=== PATIENT | male | born 1990 | race Caucasian/White ===

== ENCOUNTER → 2018-11-23 | Outpatient (CLI) | payer OTHER ==
[~2018-11-23] MED LIST: NAPROSYN500 MG PO
== END ==
LOC: M.MRI 07:03
DX: M25.562 Pain in left knee (principal); G89.29 Other chronic pain

== ENCOUNTER 2019-01-26 21:10 | Emergency (ER) | payer OTHER ==
[~2019-01-26] VITALS: Ht 180.3 cm; Wt 81.7 kg
[2019-01-26 21:41] LABS: ABSOLUTE BASOPHILS 0.1 thou/uL (0.0-0.2); ABSOLUTE EOSINOPHILS 0.1 thou/uL (0.0-0.7); ABSOLUTE LYMPHOCYTES 1.4 thou/uL (0.8-5.3); ABSOLUTE MONOCYTES 0.7 thou/uL (0.0-1.2); ABSOLUTE NEUTROPHILS 4.1 thou/uL (1.6-8.1); BASOPHILS 0.9 %; EOSINOPHILS 1.4 %; HEMATOCRIT 48.7 % (42.0-52.0); HEMOGLOBIN 16.7 gm/dL (14.0-18.0); LYMPHOCYTES 22.3 %; MCH 28.2 pg (26.0-34.0); MCHC 34.3 g/dL (28.0-37.0); MONOCYTES 11.1 %; MPV 8.5 fl. (7.2-11.1); NUCLEATED RBCS 0 /100WBC; PLATELET COUNT* 206 thou/uL (150-400); POLYS 64.3 %; RBC 5.93 mil/uL (4.50-6.00); RDW-CV 13.6 % (10.5-14.5); WBC 6.4 thou/uL (4.0-11.0)
[2019-01-26 21:49] LABS: BE 0.5 mmol/L (-2 to +3); PCO2 35.5 mmHg (35.0-45.0); PO2 88.5 mmHg (75.0-100.0); pH 7.448 (7.340-7.450)
[2019-01-26 21:49] LABS: ANION GAP 8 mmol/L (7-16); BUN 10 mg/dL (7-18); CALCIUM 9.3 mg/dL (8.5-10.1); CHLORIDE 105 mmol/L (98-107); CO2 29 mmol/L (21-32); GLUCOSE 99 mg/dL (70-99); SODIUM 142 mmol/L (136-145)
[2019-01-26 21:56] LABS: INR 1.1; PROTIME 11.1 Seconds (9.20-11.50)
[2019-01-26 22:02] LABS: ALBUMIN 4.3 g/dL (3.4-5.0); ALKALINE PHOSPHATASE 97 U/L (46-116); LIPASE 97 U/L (73-393); NT-PRO BRAIN NAT PEPTIDE 20 pg/mL (<300); SGOT 15 U/L (15-37); SGPT 20 U/L (30-65); TOTAL BILIRUBIN 0.7 mg/dL (<0.1-1.0); TOTAL PROTEIN 7.6 g/dL (6.4-8.2); TROPONIN-I LEVEL <0.06 ng/mL (<0.06)
[2019-01-26 23:02] VITALS: BP 128/79
--- NOTE | 2019-01-27 16:59 | EKG ---
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
== END 2019-01-26 23:03 | disposition home or self-care (01) ==
LOC: M.ERS 21:10
PROVIDERS: Emergency Medicine
DX: R55 Syncope and collapse (principal); R42 Dizziness and giddiness

== ENCOUNTER → 2020-11-26 | Outpatient (CLI) | payer OTHER | LOC: M.MRI 14:14 | PROVIDERS: ATTEND Registered Nurse Diabetes Educator | DX: S86.812A Strain of other muscle(s) and tendon(s) at lower leg level, left leg, initial encounter (principal); M25.562 Pain in left knee; G89.29 Other chronic pain; X58.XXXA Exposure to other specified factors, initial encounter; Y93.89 Activity, other specified; Y92.89 Other specified places as the place of occurrence of the external cause; Y99.8 Other external cause status ==